=== PATIENT | female | born 2005 | race Caucasian/White ===

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

== ENCOUNTER 2023-02-24 04:09 | Emergency (ER) | payer MEDICAID ==
--- NOTE | 2023-02-24 04:13 | ERPHSYRPT ---
- History of Present Illness Time Seen by Provider: 02/24/23 04:13 Source: patient, family Exam Limitations: no limitations Physician History: This is a 17-year-old white female who is 4 months and has not had a normal bowel movement in 2 days. Last evening she is able to pass a small amount of stool rectally. She just feels something is down there. She does not have significant abdominal pain. She has had no nausea vomiting. She was concerned because she have not had bowel movement in 2 days and she normally does. She stated that she read that you could take MiraLAX but she was afraid to because she thought there was a blockage rectally. Patient did not try an enema or suppositories Timing/Duration: day(s) (2) Severity: mild Associated Symptoms: denies symptoms Allergies/Adverse Reactions: No Known Drug Allergies Allergy (Verified 02/24/23 05:10) Home Medications: Albuterol Sulfate [Albuterol Sulfate Hfa] 8.5 gm IH Q4-6HPRN PRN 08/28/21 [History] Pnv No.103/Folic/Om3s/Fish Oil [ Gummies] 1 each PO DAILY 02/24/23 [History] Hx Tetanus, Diphtheria Vaccination/Date Given: Yes Hx Influenza Vaccination/Date Given: No Hx Pneumococcal Vaccination/Date Given: No Travel Risk - International Travel Have you traveled outside of the country in past 3 weeks: No - Coronavirus Screening Are you exhibiting any of the following symptoms?: No Close contact with a COVID-19 positive Pt in past 14-21 Days: No - Vaccine Status Have you recieved a Covid-19 vaccination: No - Review of Systems Constitutional: No Symptoms Eyes: No Symptoms Ears, Nose, & Throat: No Symptoms Respiratory: No Symptoms Cardiac: No Symptoms Abdominal/Gastrointestinal: Constipation, No Abdominal Pain, No Nausea, No Vomiting, No Diarrhea Genitourinary Symptoms: No Symptoms Musculoskeletal: No Symptoms Skin: No Symptoms Neurological: No Symptoms Psychological: No Symptoms Endocrine: No Symptoms Hematologic/Lymphatic: No Symptoms Immunological/Allergic: No Symptoms All Other Systems: Reviewed and Negative - Past Medical History Pertinent Past Medical History: No Respiratory History: Asthma - Past Surgical History Past Surgical History: No - Social History Smoking Status: Never smoker Exposure to second hand smoke: Yes Drug Use: none Patient Lives Alone: No - Nursing Vital Signs Nursing Vital Signs: Initial Vital Signs Temperature 98.7 F 02/24/23 04:52 Pulse Rate 110 H 02/24/23 04:52 Respiratory Rate 16 02/24/23 04:52 Blood Pressure 132/73 02/24/23 04:52 O2 Sat by Pulse Oximetry 98 02/24/23 04:52 Pain Scale Pain Intensity 4 - Physical Exam General Appearance: no apparent distress, alert, anxiety, thin Eye Exam: PERRL/EOMI, eyes nml inspection Ears, Nose, Throat Exam: normal ENT inspection, moist mucous membranes Neck Exam: normal inspection, non-tender, supple, full range of motion Respiratory Exam: airway intact, No chest tenderness, No respiratory distress Gastrointestinal/Abdomen Exam: other ( abdomen), No tenderness Pelvic Exam: not done Rectal Exam: not done Back Exam: normal inspection, normal range of motion, No CVA tenderness, No vertebral tenderness Extremity Exam: normal inspection, normal range of motion, pelvis stable Neurologic Exam: alert, oriented x 3, cooperative, product development manager II-XII nml as tested, normal mood/affect, nml cerebellar function, nml station & gait, sensation nml Skin Exam: normal color, warm, dry Lymphatic Exam: No adenopathy SpO2 Interpretation: normal O2 Delivery: Room Air - Course Nursing assessment & vital signs reviewed: Yes Ordered Tests: Medication Summary Discontinued Medications Generic Name Dose Route Start Last Admin Trade Name Freq PRN Reason Stop Dose Admin Glycerin 1 supp.rect 02/24/23 05:40 02/24/23 05:52 Glycerin 1 Supp.Rect Adult RC 02/24/23 05:41 1 supp.rect STAT ONE Administration - Progress Progress Note: 02/24/23 06:28 This patient has not had a bowel movement in 2 days. She is 4 months and she became concerned because she normally has 1-2 bowel movements daily. She feels as though there is something down in the anorectal region. There is no external signs of any swelling bleeding or foreign body. She denied placing any foreign body into her anus or rectum. She is 4 months and we avoided a x-ray and gave her options of a soapsuds enema, fleets enema, glycerin suppository. All these options were presented to her to be performed here rectally. She has opted for glycerin suppository and if that does not work she will take a fleets enema for home use. She also can use MiraLAX as instructed on the OTC container. Patient's medical issue is 1 of low complexity. Her work-up does not require laboratory studies or radiographic studies. Counseled pt/family regarding: diagnosis, need for follow-up Medical Desision Making - Independent Historian Additional History obtained from: Spouse - Risk of complications Minimal Risk: Minimal risk of morbidity - Departure Departure Disposition: Home Clinical Impression: Constipation during Condition: Stable Critical Care Time: No Referrals: KAVON DURBIN NP [Primary Care Provider] - Follow up/PCP as directed Additional Instructions: Drink plenty of clear liquids. May use MiraLAX [id number] as instructed on the [id number] container. May use glycerin suppositories or fleets enema [id number]. Call your estimator and drafter supervisor today for further evaluation and management/instructions.
[2023-02-24 05:10] VITALS: O2SAT 98
[2023-02-24] MEDS ORDERED: GLYCERIN ADULT SUPPOSITORY RC ONE (05:40)
[2023-02-24 06:10] VITALS: BP 121/67; PULSE 86
== END 2023-02-24 06:37 | disposition home or self-care (01) ==
LOC: ED 04:09
DX: K59.00 Constipation, unspecified (principal); Z33.1 Pregnant state, incidental; Z28.310 Unvaccinated for COVID-19
CPT/HCPCS: 99281; A9270-GY

== ENCOUNTER 2023-04-07 19:19 | Emergency (ER) | payer OTHER ==
--- NOTE | 2023-04-07 19:32 | ERPHSYRPT ---
- History of Present Illness Time Seen by Provider: 04/07/23 19:30 Source: patient Exam Limitations: no limitations Patient Subjective Stated Complaint: Pt states "I am 5 months and I have asthma and I am having a hard time breathing." Triage Nursing Assessment: Pt presented alert and oriented X 3, skin pwd. Pt ambulates with an upright steady gait, able to speak in clear full sentences. pt resting comfortably on the bed Physician History: This is a 17-year-old white female who is 5 months and has a history of asthma and whose OB is Dr. Royal and primary care provider nurse practitioner Lora presents with 2 episodes of shortness of breath. 1 last night and the repeat 1 this morning. Patient has 16 4 puffs on her inhaler of albuterol. In addition, she has a nebulizer machine with her late father's old medication that she is using once a day if she needs it for wheezing or shortness of breath issues. She does not have any Ventolin nebulizer solution vials. Patient denies chest pain. She arrives to the emergency department in no distress with an room air oxygenation of 99%. She is anxious. Timing/Duration: today Severity: mild Associated Symptoms: shortness of breath (Mild) Allergies/Adverse Reactions: No Known Drug Allergies Allergy (Verified 02/24/23 05:10) Home Medications: Albuterol Sulfate [Albuterol Sulfate Hfa] 8.5 gm IH Q4-6HPRN PRN 08/28/21 [History] Pnv No.103/Folic/Om3s/Fish Oil [ Gummies] 1 each PO DAILY 02/24/23 [History] Hx Tetanus, Diphtheria Vaccination/Date Given: Yes Hx Influenza Vaccination/Date Given: No Hx Pneumococcal Vaccination/Date Given: No Immunizations Up to Date: Yes Travel Risk - International Travel Have you traveled outside of the country in past 3 weeks: No - Coronavirus Screening Are you exhibiting any of the following symptoms?: No Close contact with a COVID-19 positive Pt in past 14-21 Days: No - Vaccine Status Have you recieved a Covid-19 vaccination: No - Review of Systems Constitutional: No Symptoms Eyes: No Symptoms Ears, Nose, & Throat: No Symptoms Respiratory: Dyspnea (Mild) Cardiac: No Symptoms, No Chest Pain Abdominal/Gastrointestinal: No Symptoms Genitourinary Symptoms: No Symptoms Musculoskeletal: No Symptoms Skin: No Symptoms Neurological: No Symptoms Psychological: No Symptoms Endocrine: No Symptoms Hematologic/Lymphatic: No Symptoms Immunological/Allergic: No Symptoms All Other Systems: Reviewed and Negative - Past Medical History Pertinent Past Medical History: No Respiratory History: Asthma - Past Surgical History Past Surgical History: No - Social History Smoking Status: Never smoker Exposure to second hand smoke: Yes Drug Use: none Patient Lives Alone: No - Female History Hx Last Menstrual Period: 10/2022 Hx Now: Yes Gestational Age: 21 weeks - Nursing Vital Signs Nursing Vital Signs: Initial Vital Signs Temperature 97.9 F 04/07/23 19:20 Pulse Rate 124 H 04/07/23 19:20 Respiratory Rate 24 04/07/23 19:20 Blood Pressure 141/86 04/07/23 19:20 O2 Sat by Pulse Oximetry 98 04/07/23 19:20 Pain Scale Pain Intensity 0 - Physical Exam General Appearance: no apparent distress, alert Eye Exam: PERRL/EOMI, eyes nml inspection Ears, Nose, Throat Exam: normal ENT inspection, moist mucous membranes Neck Exam: normal inspection, non-tender, supple, full range of motion Respiratory Exam: normal breath sounds, lungs clear, airway intact, No chest tenderness, No respiratory distress Cardiovascular Exam: tachycardia Gastrointestinal/Abdomen Exam: soft, normal bowel sounds, No tenderness Rectal Exam: not done Back Exam: normal inspection, normal range of motion, No CVA tenderness, No vertebral tenderness Extremity Exam: normal inspection, normal range of motion, pelvis stable Neurologic Exam: alert, oriented x 3, cooperative, manager document control II-XII nml as tested, normal mood/affect, nml cerebellar function, nml station & gait, sensation nml Skin Exam: normal color, warm, dry Lymphatic Exam: No adenopathy SpO2 Interpretation: normal SpO2: 99 O2 Delivery: Room Air - Course Nursing assessment & vital signs reviewed: Yes EKG Interpreted by Me: RATE ([id number]), Sinus Tach, NORMAL AXIS, NORMAL INTERVALS, NORMAL QRS, Other (No acute ischemic changes on today's twelve-lead EKG.) Ordered Tests: Active Orders 24 hr Category Date Time Status Respiratory Therapy Assessment DAILY RT 04/07/23 20:11 Completed - Progress Progress: improved, re-examined Progress Note: 04/07/23 20:30 I had a long talk with the patient and her significant other. We discussed the options of this patient and I offered twelve-lead EKG, chest x-ray, CBC, CMP D- dimer level. I also told her that I did not necessarily think she needed all of those tests but they were there for her if I was going to perform a complete work-up. She does not have any chest pain. She is in no distress and her room air oxygenation is 99%. She does not have any wheezing on examination. We also discussed the use acutely of steroids. Again, I do not think the patient is an significant distress and there are risks and benefits to the steroids and we discussed those. Patient states she has been on the steroids in the past and prefers not to be on those. What we agreed together to do is to get a twelve- lead EKG and to have respiratory therapy evaluate her. Patient does not want anything else performed but we will send a prescription remotely to the pharmacy for Ventolin solution vials for the nebulizer. Patient states that she has prescriptions for her albuterol inhaler and she does not need that prescription. 04/07/23 20:33 At the time of discharge her air sampling and monitoring showed a heart rate of approxi mately 99-104 and it was a normal sinus rhythm. Counseled pt/family regarding: diagnosis, need for follow-up Medical Desision Making - Independent Historian Additional History obtained from: Spouse - Diagnostic Testing Diagnostic test were ordered, analyzed, and reviewed by me: Yes - Risk of complications The pt has a mod risk of morbidity or mortality based on: Need for prescription drug management - Departure Departure Disposition: Home Clinical Impression: Asthma, Shortness of breath Condition: Stable Critical Care Time: No Referrals: KAVON DURBIN NP [Primary Care Provider] - Follow up/PCP as directed Additional Instructions: Use your inhalers and nebulizer as prescribed. Follow-up with your primary care provider and your automobile brake bonder on 04/09/2023 for further evaluation management. If your symptoms worsen return to the emergency department for further evaluation management. Prescriptions: Albuterol 2.5 mg/3 ml Neb [Proventil 2.5 mg/3 ml Neb] 2.5 mg IH Q6H #25 units
[2023-04-07 20:31] VITALS: BP 146/80; PULSE 90
[2023-04-07 20:32] VITALS: O2SAT 99
== END 2023-04-07 21:03 | disposition home or self-care (01) ==
LOC: ED 19:19
DX: J45.909 Unspecified asthma, uncomplicated (principal); R06.02 Shortness of breath; Z79.899 Other long term (current) drug therapy; Z28.310 Unvaccinated for COVID-19; Z33.1 Pregnant state, incidental
CPT/HCPCS: 99281

== ENCOUNTER 2023-07-31 01:40 | Inpatient (IN) | payer OTHER ==
[2023-07-31 23:32] LABS: Amphetamine,Urine NEGATIVE (NEGATIVE); Barbiturate,Urine NEGATIVE (NEGATIVE); Benzodiazepine,Urine NEGATIVE (NEGATIVE); Cocaine,Urine NEGATIVE (NEGATIVE); Methadone,Urine NEGATIVE (NEGATIVE); Opiate,Urine NEGATIVE (NEGATIVE); PCP,Urine NEGATIVE (NEGATIVE); THC,Urine NEGATIVE (NEGATIVE)
[2023-07-31] MEDS ORDERED: Zofran 4 MG/2 ML VIAL IV PRN (23:38)
[2023-07-31] MEDS ORDERED: Nubain 10 MG/ML IV PRN (23:38)
[2023-07-31] MEDS ORDERED: TYLENOL EXTRA STRENGTH 500 MG PO PRN (23:38)
[2023-07-31] MEDS ORDERED: XYLOCAINE 1% HCL 20 ML MDV IJ PRN (23:38)
[2023-07-31] MEDS ORDERED: PITOCIN 30 UNITS/ LR 500 ML 30 UNITS/500 ML PLAST..BAG IV SCH (23:45)
[2023-07-31] MEDS ORDERED: BRETHINE 1 MG/ML SQ PRN (23:54)
[2023-08-01] MEDS ORDERED: Ephedrine Sulfate 50 MG/ML IV PRN (00:01)
[2023-08-01] MEDS ORDERED: Lactated Ringers 1,000 ML IV ONE (00:01)
[2023-08-01 00:10] LABS: Absolute Neutrophil Ct (ANC) 8.45 x10^3/uL (1.4-6.9); BASOPHIL % 0.3 % (0.0-0.4); Basophil (Absolute #) 0.04 x10^3/uL (0-0.4); Eosinophil % 1.8 % (0.00-5.0); Eosinophil (Absolute #) 0.22 x10^3/uL (0-0.5); Hematocrit 27.3 % (35-47); Hemoglobin 7.9 g/dL (12.0-16.0); IMMATURE GRAN # 0.16 x10^3u/L (0.00-0.03); IMMATURE GRAN % 1.3 % (0.00-0.4); Lymphocyte (Absolute #) 2.57 x10^3/uL (1.0-4.6); Lymphocytes % 21.3 % (24.0-44.0); Mean Cell Volume 68.6 fL (78-100); Mean Corpuscular Hemoglobin 19.8 pg (26-32); Mean Corpuscular Hgb Concent. 28.9 g/dL (32-36); Mean Platelet Volume 9.8 fL (7.5-11.0); Monocyte (Absolute #) 0.62 x10^3/uL (0.0-1.3); Monocytes % 5.1 % (0.0-12.0); NUCLEATED RBC # 0.02 x10^3u/L (0.00-0.01); NUCLEATED RBC % 0.2 % (0.00-0.1); Neutrophil % 70.2 % (36.0-66.0); Platelet Count 355 x10^3/uL (150-450); Red Blood Count 3.98 x10^6/uL (4.1-5.4); Red Cell Distribution Width 17.6 % (11.5-14.0); White Blood Count 12.1 x10^3/uL (4.0-10.5)
[2023-08-01] MEDS ORDERED: FENTANYL 2 MCG-BUPIV 0.125%-NS 250 ML Epidur 250 ML EPIDURAL SCH (00:15)
[2023-08-01] MEDS: Lactated Ringers 1,000 ML IV SCH ×3 (00:30→17:26)
[2023-08-01 01:26] LABS: ABO TYPING O; RH TYPING NEGATIVE
[2023-08-01 01:29] LABS: Antibody Screen POSITIVE (NEGATIVE)
[2023-08-01] MEDS ORDERED: Nubain 10 MG/ML IV PRN (01:38)
[2023-08-01] MEDS: PITOCIN 30 UNITS/ LR 500 ML 30 UNITS/500 ML PLAST..BAG IV SCH ×6 (01:41→06:45)
[2023-08-01 02:33] LABS: Appearance Turbid (Clear); Bacteria Few /HPF (None Seen); Bilirubin Negative (Negative); Blood Moderate (Negative); Epithelial Cells Many /HPF (None Seen); Glucose, Urine Negative (Negative); Ketones Trace (Negative); Leukocyte Esterase Moderate (Negative); Nitrite Negative (Negative); Protein,Urine Dip 30 (Negative); RBC 51-100 /HPF (0-5); Specific Gravity 1.025 (1.005-1.030); WBC 21-50 /HPF (0-5)
[2023-08-01 02:39] LABS: ADD URINE CULTURE? YES (NO)
[2023-08-01 04:54] LABS: Slide Review 1 YES
[2023-08-01] MEDS: OMNIPEN 1 GM*** 1 GM in Sodium Chloride 100ML MINI-BAG PLUS 100 ML IV SCH ×5 (08:37→20:08)
[2023-08-01] MEDS ORDERED: STADOL 2 MG IV PRN (08:40)
[2023-08-01] MEDS ORDERED: PITOCIN 30 UNITS/ LR 500 ML 30 UNITS/500 ML PLAST..BAG IV SCH (12:00)
[2023-08-01] MEDS ORDERED: Dermoplast Spray TP PRN (23:26)
[2023-08-01] MEDS ORDERED: Adacel Vial IM ONE (23:26)
[2023-08-01] MEDS ORDERED: LANSINOH 40 GM TOP PRN (23:26)
[2023-08-01] MEDS: TUCKS TP PRN (23:31)
[2023-08-02 06:39] LABS: Absolute Neutrophil Ct (ANC) 20.16 x10^3/uL (1.4-6.9); BASOPHIL % 0.2 % (0.0-0.4); Basophil (Absolute #) 0.04 x10^3/uL (0-0.4); Eosinophil (Absolute #) 0 x10^3/uL (0-0.5); Hematocrit 22.2 % (35-47); IMMATURE GRAN # 0.17 x10^3u/L (0.00-0.03); IMMATURE GRAN % 0.7 % (0.00-0.4); Lymphocyte (Absolute #) 2.28 x10^3/uL (1.0-4.6); Lymphocytes % 9.7 % (24.0-44.0); Mean Cell Volume 68.9 fL (78-100); Mean Corpuscular Hemoglobin 19.6 pg (26-32); Mean Corpuscular Hgb Concent. 28.4 g/dL (32-36); Mean Platelet Volume 9.5 fL (7.5-11.0); Monocyte (Absolute #) 0.81 x10^3/uL (0.0-1.3); Monocytes % 3.5 % (0.0-12.0); Neutrophil % 85.9 % (36.0-66.0); Platelet Count 285 x10^3/uL (150-450); Red Blood Count 3.22 x10^6/uL (4.1-5.4); Red Cell Distribution Width 18.3 % (11.5-14.0); White Blood Count 23.5 x10^3/uL (4.0-10.5)
[2023-08-02 06:42] LABS: Hemoglobin 6.3 g/dL (12.0-16.0)
[2023-08-02] MEDS ORDERED: Sodium Chloride 0.9% 1000 ML 1,000 ML IV SCH (09:00)
[2023-08-02] MEDS: Docusate Sodium 100 MG PO SCH ×2 (09:36→22:00)
[2023-08-02] MEDS: FEOSOL 325 MG PO SCH ×3 (09:36→22:00)
[2023-08-02] MEDS ORDERED: FERREX 150 PO SCH (10:00)
[2023-08-02 10:20] LABS: Slide Review 1 YES
[2023-08-02 10:41] LABS: CROSS MATCH (PRBC) COMPATIBLE (COMPATIBLE)
[2023-08-02] MEDS ORDERED: Sodium Chloride 0.9% 1000 ML 1,000 ML ONE (10:45)
--- NOTE | 2023-08-02 12:18 | PCM.NOTE ---
Date and Time: 08/02/23 1216 Subjective Assessment: ppd 1 sp pt resting in bed and able to ambulate and tolerate diet vss afebrile abd; soft uterus; firm lochia; mild hgb;6.3 a/p sp ppd 1 with physiologic anemia will transfuse 2 units of prbc will dc home tomorrow should fu in office in 3 wks OBJECTIVE DATA Vital Signs: Vital Signs - 24 hr Temp Pulse Resp BP BP Pulse Ox 08/02/23 10:00 98.7 F 100 H 16 103/71 96 08/02/23 04:45 98.1 F 109 H 16 126/60 100 08/01/23 22:45 105 H 18 114/56 98 08/01/23 22:30 113 H 18 120/52 99 08/01/23 22:15 97 H 18 104/59 97 08/01/23 22:00 100 H 20 111/55 99 08/01/23 21:45 97.6 F 99 H 20 117/61 100 08/01/23 21:15 116 H 20 124/65 08/01/23 21:00 97 H 20 130/69 130/69 08/01/23 20:45 104 H 20 136/64 08/01/23 20:30 104 H 20 136/64 08/01/23 20:15 127 H 20 136/64 08/01/23 20:00 116 H 20 136/70 08/01/23 19:45 110 H 20 113/66 08/01/23 19:30 105 H 20 120/61 08/01/23 19:15 127 H 20 136/64 08/01/23 19:00 120 H 20 139/72 139/72 08/01/23 18:45 117 H 20 123/68 08/01/23 18:30 136 H 20 127/73 08/01/23 18:15 121 H 20 130/78 08/01/23 18:00 105 H 20 123/74 08/01/23 17:45 105 H 20 123/74 08/01/23 17:30 108 H 20 125/60 08/01/23 17:15 114 H 20 128/75 08/01/23 17:00 98.8 F 104 H 20 120/72 120/72 08/01/23 16:44 94 H 18 114/59 08/01/23 16:23 85 18 113/60 08/01/23 16:15 98.8 F 95 H 18 119/62 08/01/23 16:00 96 H 18 120/60 08/01/23 15:45 96 H 18 115/57 08/01/23 15:30 94 H 18 120/63 08/01/23 15:15 100 H 18 121/67 08/01/23 15:00 101 H 18 117/59 117/59 08/01/23 14:45 103 H 18 118/64 08/01/23 14:30 88 18 122/60 08/01/23 14:15 94 H 18 113/57 08/01/23 14:00 90 18 115/71 08/01/23 13:45 90 18 104/66 08/01/23 13:30 78 18 95/69 08/01/23 13:15 112 H 18 99/57 08/01/23 13:00 104 H 18 108/60 108/60 100 08/01/23 12:45 105 H 20 111/60 99 08/01/23 12:30 104 H 20 109/56 99 Pain Assessment - Last Documented Pain Intensity [Anterior/ 0 Posterior] Pain Intensity 0 Pain Scale Used 0-10 Pain Scale Intake and Output: Intake & Output 07/31/23 08/01/23 08/02/23 08/03/23 11:59 11:59 11:59 11:59 Intake Total 4550 2275 Output Total 900 Balance 4550 1375 Weight 53.977 kg Lab Results: Lab Results-Last 24 Hours 08/02/23 08/02/23 08/02/23 Range/Units 06:35 Unknown Unknown WBC 23.5 H (4.0-10.5) x10^3/uL RBC 3.22 L (4.1-5.4) x10^6/uL Hgb 6.3 L* (12.0-16.0) g/dL Hct 22.2 L (35-47) % MCV 68.9 L (78-100) fL MCH 19.6 L (26-32) pg MCHC 28.4 L (32-36) g/dL RDW 18.3 H (11.5-14.0) % Plt Count 285 (150-450) x10^3/uL MPV 9.5 (7.5-11.0) fL Gran % 85.9 H (36.0-66.0) % Immature Gran % (Auto) 0.7 H (0.00-0.4) % Nucleat RBC Rel Count 0.0 (0.00-0.1) % Eos # (Auto) 0 (0-0.5) x10^3/uL Immature Gran # (Auto) 0.17 H (0.00-0.03) x10^3u/L Absolute Lymphs (auto) 2.28 (1.0-4.6) x10^3/uL Absolute Monos (auto) 0.81 (0.0-1.3) x10^3/uL Absolute Nucleated RBC 0.00 (0.00-0.01) x10^3u/L Lymphocytes % 9.7 L (24.0-44.0) % Monocytes % 3.5 (0.0-12.0) % Eosinophils % 0.0 (0.00-5.0) % Basophils % 0.2 (0.0-0.4) % Absolute Granulocytes 20.16 H (1.4-6.9) x10^3/uL Basophils # 0.04 (0-0.4) x10^3/uL Slides for Path Review YES Crossmatch COMPATIBLE COMPATIBLE (COMPATIBLE) Assessment/Plan (1) Vaginal delivery Current Visit: Yes Status: Acute Code(s): O80 - ENCOUNTER FOR FULL-TERM UNCOMPLICATED DELIVERY (2) Anemia Current Visit: Yes Status: Acute Assessment & Plan: physiologic anemia Code(s): D64.9 - ANEMIA, UNSPECIFIED (3) Anemia affecting Current Visit: Yes Status: Acute Code(s): O99.019 - ANEMIA COMPLICATING , UNSPECIFIED TRIMESTER
--- NOTE | 2023-08-02 12:23 | PCM.DS ---
Discharge Summary Date of Admission: 08/01/23 01:40 Admitting Physician: KLAUDIA RUFFIN DO Consults: Consults on Case 08/01/23 23:26 Navigation ONCE Primary Care Provider: KAVON DURBIN Allergies Allergies No Known Drug Allergies Allergy (Verified 07/31/23 23:13) Hospital Summary - Hospital Course Hospital Course: pt admitted on jul 31 who came in at 37 4/7 wks gestation with srom and uterine contx and was noted being closed on admission. pt had amnisure that was positive and was grossly ruputured. pt was started on pitocin and subsequently delivered in the evening of aug 01 live baby girl without complication. pt was noted having anemia at admission and was 7.9 and after delivery was 6.3. pt was noted having tachycardia and was transfused 2 units prbc and was stable after receiving her blood. at this time pt stable for discharge on aug 03 and was advised to fu in office in 3 wks. all questions answered to her satisfaction and was advised to continue her iron supplementation by taking it twice daily. - Vitals & Intake/Output Vital Signs: Vital Signs Temperature 98.7 F 08/02/23 10:00 Pulse Rate 100 H 08/02/23 10:00 Respiratory Rate 16 08/02/23 10:00 Blood Pressure 103/71 08/02/23 10:00 O2 Sat by Pulse Oximetry 96 08/02/23 10:00 Intake & Output: Intake & Output 07/31/23 08/01/23 08/02/23 08/03/23 11:59 11:59 11:59 11:59 Intake Total 4550 2275 Output Total 900 Balance 4550 1375 Weight 53.977 kg - Lab Result Diagrams: 08/02/23 06:35 Lab Results-Last 24 Hrs: Lab Results-Last 24 Hours 08/02/23 08/02/23 08/02/23 Range/Units 06:35 Unknown Unknown WBC 23.5 H (4.0-10.5) x10^3/uL RBC 3.22 L (4.1-5.4) x10^6/uL Hgb 6.3 L* (12.0-16.0) g/dL Hct 22.2 L (35-47) % MCV 68.9 L (78-100) fL MCH 19.6 L (26-32) pg MCHC 28.4 L (32-36) g/dL RDW 18.3 H (11.5-14.0) % Plt Count 285 (150-450) x10^3/uL MPV 9.5 (7.5-11.0) fL Gran % 85.9 H (36.0-66.0) % Immature Gran % (Auto) 0.7 H (0.00-0.4) % Nucleat RBC Rel Count 0.0 (0.00-0.1) % Eos # (Auto) 0 (0-0.5) x10^3/uL Immature Gran # (Auto) 0.17 H (0.00-0.03) x10^3u/L Absolute Lymphs (auto) 2.28 (1.0-4.6) x10^3/uL Absolute Monos (auto) 0.81 (0.0-1.3) x10^3/uL Absolute Nucleated RBC 0.00 (0.00-0.01) x10^3u/L Lymphocytes % 9.7 L (24.0-44.0) % Monocytes % 3.5 (0.0-12.0) % Eosinophils % 0.0 (0.00-5.0) % Basophils % 0.2 (0.0-0.4) % Absolute Granulocytes 20.16 H (1.4-6.9) x10^3/uL Basophils # 0.04 (0-0.4) x10^3/uL Slides for Path Review YES Crossmatch COMPATIBLE COMPATIBLE (COMPATIBLE) Micro Results-Entire Visit: Microbiology 08/01/23 00:01 Urine Culture - Final Urine, Void MIXED CYNTHIA; 3 OR MORE TYPES. NO PREDOMINANT ORGANISM. NO FURTHER WORKUP. PLEASE RESUBMIT IF CLINICALLY INDICATED. Final Diagnosis/Problem List - Final Discharge Diagnosis/Problem (1) Vaginal delivery Current Visit: Yes Status: Acute Code(s): O80 - ENCOUNTER FOR FULL-TERM UNCOMPLICATED DELIVERY (2) Anemia Current Visit: Yes Status: Acute Code(s): D64.9 - ANEMIA, UNSPECIFIED (3) Anemia affecting Current Visit: Yes Status: Acute Code(s): O99.019 - ANEMIA COMPLICATING , UNSPECIFIED TRIMESTER - Discharge Disposition: Home, Self-Care Condition: Stable Prescriptions: New Ferrous Sulfate 325 mg [Feosol 325 mg] 325 mg PO BID 60 Days tablet Ferrous Sulfate 325 mg [Feosol 325 mg] 325 mg PO BID #60 tablet No Action Albuterol Sulfate [Albuterol Sulfate Hfa] 8.5 gm IH Q4-6HPRN PRN PRN Reason: Shortness Of Breath/Wheezing Pnv No.103/Folic/Om3s/Fish Oil [ Gummies] 1 each PO DAILY Albuterol 2.5 mg/3 ml Neb [Proventil 2.5 mg/3 ml Neb] 2.5 mg IH Q6H #25 units Follow up with: KAVON DURBIN NP [Primary Care Provider] - KLAUDIA RUFFIN DO [ACTIVE STAFF] - 3 weeks
[2023-08-02 17:08] LABS: Hematocrit 27.8 % (35-47); Hemoglobin 8.6 g/dL (12.0-16.0)
[2023-08-02] MEDS: MOTRIN 400 MG PO PRN (18:01)
[2023-08-02 23:19] VITALS: RESP 18
[2023-08-03] MEDS: MOTRIN 400 MG PO PRN (04:30)
[2023-08-03 07:18] VITALS: O2SAT 99
[2023-08-03] MEDS: TUCKS TP PRN (07:50)
[2023-08-03] MEDS: FEOSOL 325 MG PO SCH (10:17)
[2023-08-03] MEDS: Docusate Sodium 100 MG PO SCH (10:17)
[2023-08-03 17:21] VITALS: BP 105/69; PULSE 87; TEMP 98.4
== END 2023-08-03 16:15 | disposition home or self-care (01) | DRG 807 ==
LOC: OB 01:40 → OBSVTOIN 08-01 01:40
PROVIDERS: ADMIT Obstetrics & Gynecology; ATTEND Obstetrics & Gynecology
PROC: 10E0XZZ Delivery of Products of Conception, External Approach (ICD-10-PCS; principal; 2023-08-01)
PROC: 0HQ9XZZ Repair Perineum Skin, External Approach (ICD-10-PCS; 2023-08-01)
DX: O70.9 Perineal laceration during delivery, unspecified (principal); Z37.0 Single live birth; Z3A.37 37 weeks gestation of pregnancy; O99.02 Anemia complicating childbirth; D64.9 Anemia, unspecified
CPT/HCPCS: 36415; 36430; 59025; 80307; 81001; 84112; 85014; 85018; 85025; 86850; 86870; 86900; 86901; 86922; 87086; 90715; 99213; G0378; G0379; J0290; J0595; J2300; J2405; J2590; P9016; A9270-GY

== ENCOUNTER 2023-11-28 16:44 | Emergency (ER) | payer OTHER ==
[2023-11-28 17:04] VITALS: BP 120/70; PULSE 86; RESP 18; TEMP 98.1
--- NOTE | 2023-11-28 17:14 | ERPHSYRPT ---
- History of Present Illness Time Seen by Provider: 11/28/23 17:03 Source: patient Exam Limitations: no limitations Physician History: Pt states she has had a white itchy vaginal discharge for the past 2 days; denies fever, abdominal pain, vomiting, diarrhea, urinary frequency. Allergies/Adverse Reactions: No Known Drug Allergies Allergy (Verified 11/28/23 17:01) Home Medications: Albuterol Sulfate [Albuterol Sulfate Hfa] 8.5 gm IH Q4-6HPRN PRN 08/28/21 [History] Hx Tetanus, Diphtheria Vaccination/Date Given: Yes Hx Influenza Vaccination/Date Given: No Hx Pneumococcal Vaccination/Date Given: No Travel Risk - Vaccine Status Have you recieved a Covid-19 vaccination: No - Review of Systems Constitutional: No Fever Respiratory: No Dyspnea Cardiac: No Chest Pain Abdominal/Gastrointestinal: No Abdominal Pain, No Nausea, No Vomiting, No Diarrhea Genitourinary Symptoms: Vaginal Discharge (white), Vaginal Itching Neurological: No Headache - Past Medical History Pertinent Past Medical History: No Respiratory History: Asthma - Past Surgical History Past Surgical History: No - Social History Smoking Status: Never smoker How long have you smoked: no Exposure to second hand smoke: Yes Drug Use: none Patient Lives Alone: No - Nursing Vital Signs Nursing Vital Signs: Initial Vital Signs Temperature 98.1 F 11/28/23 17:03 Pulse Rate 86 11/28/23 17:03 Respiratory Rate 18 11/28/23 17:03 Blood Pressure 120/70 11/28/23 17:03 O2 Sat by Pulse Oximetry 100 11/28/23 17:03 Pain Scale Pain Intensity 3 - Physical Exam General Appearance: alert Eye Exam: PERRL/EOMI Ears, Nose, Throat Exam: TMs normal, pharynx normal Neck Exam: normal inspection Respiratory Exam: normal breath sounds Cardiovascular Exam: normal heart sounds Gastrointestinal/Abdomen Exam: normal bowel sounds Pelvic Exam: vaginal discharge (white(ER Nurse Sherita present during exam) - external exam only) Extremity Exam: No pedal edema Neurologic Exam: alert, cooperative SpO2 Interpretation: normal SpO2: 100 O2 Delivery: Room Air - Progress Counseled pt/family regarding: diagnosis - Departure Departure Disposition: Home Clinical Impression: Vaginal candidiasis Condition: Stable Critical Care Time: No Referrals: KAVON DURBIN NP [Primary Care Provider] - Follow up/PCP as directed Instructions: Vulvovaginal yeast infection Additional Instructions: Follow up with private doctor tomorrow. Prescriptions: Miconazole Nitrate [Monistat 7] 1 ea VG DAILY #7
[2023-11-28] MEDS ORDERED: Diflucan 100 MG ONE (17:41)
[2023-11-28] MEDS: Diflucan 100 MG PO ONE (17:50)
[2023-11-28 17:58] VITALS: O2SAT 98
[2023-11-29] MEDS ORDERED: DIFLUCAN PO SCH (10:00)
== END 2023-11-28 17:57 | disposition home or self-care (01) ==
LOC: ED 16:44
DX: B37.31 Acute candidiasis of vulva and vagina (principal); L29.2 Pruritus vulvae; Z79.899 Other long term (current) drug therapy; Z28.310 Unvaccinated for COVID-19
CPT/HCPCS: 99281; A9270-GY